=== PATIENT | female | born 1935 | race Two or more races ===

== ENCOUNTER 2017-04-09 19:43 | Emergency (ER) | payer MEDICARE, OTHER ==
[~2017-04-09] VITALS: Ht 160 cm; Wt 81.6 kg
[~2017-04-09 19:43] MED LIST: AMLO5TAB4 PO; ASPI81TA2 PO; CLON0.2T PO; CLON1TAB4 PO; ERGO50003 PO; HYDR-4077 PO; METO50TA3 PO; NAPR375T3 PO; OLME1TAB3 PO; TRAM50TA2 PO; [UNRECOGNIZED DRUG - CODE] IJ
[2017-04-09 20:47] VITALS: BP 155/70
== END 2017-04-09 20:50 | disposition home or self-care (01) ==
LOC: ER 19:53
DX: S80.12XA Contusion of left lower leg, initial encounter (principal); I10 Essential (primary) hypertension; Z79.82 Long term (current) use of aspirin; W20.8XXA Other cause of strike by thrown, projected or falling object, initial encounter; Y93.89 Activity, other specified; Y92.89 Other specified places as the place of occurrence of the external cause; Y99.9 Unspecified external cause status
CPT/HCPCS: 99281; A4606; Z7502; Z7610

== ENCOUNTER 2017-05-23 18:36 | Inpatient (IN) | payer MEDICARE, OTHER ==
[~2017-05-23] VITALS: Ht 154.9 cm; Wt 67.1 kg
--- NOTE | 2017-05-23 18:45 | NUR ---
BIB FAMILY LEFT LOWER EXTREMITY OPEN WOUND S/P INJURY ~ 2-3 WEEKS AGO, NAD NOTED, VSS NOTED, WAITING FOR MD YANG.
--- NOTE | 2017-05-23 19:36 | NUR ---
RECEIVED REPORT, PATIENT STABLE, TRACTOR DISTRIBUTOR AT BEDSIDE. WILL PROVIDE EDWARD.
--- NOTE | 2017-05-23 19:49 | NUR ---
us tech at bedside.
--- NOTE | 2017-05-23 19:57 | NUR ---
REPORT GIVEN TO RICARDA FANG FOR EDWARD.
[2017-05-23 20:32] LABS: BASOPHILS % (AUTO) 0.5 % (0.0-2.0); EOSINOPHILS # (AUTO) 0.1 /CMM (0.0-0.7); EOSINOPHILS % (AUTO) 1.5 % (0.0-6.0); HEMATOCRIT 33 % (33-45); HEMOGLOBIN 10.7 g/dL (11.5-14.8); LYMPHOCYTES # (AUTO) 2.2 /CMM (0.8-4.8); LYMPHOCYTES % (AUTO) 26.4 % (20.0-44.0); MEAN CORPUSCULAR HEMOGLOBIN 28 PG (26.0-33.0); MEAN CORPUSCULAR HGB CONC 33 g/dl (31.0-36.0); MEAN CORPUSCULAR VOLUME 84 fL (82-100); MONOCYTES # (AUTO) 0.6 /CMM (0.1-1.30); NEUTROPHILS # (AUTO) 5.3 /CMM (1.8-8.9); NEUTROPHILS % (AUTO) 64.6 % (43.0-81.0); PLATELET COUNT (AUTO) 198 /CMM (150-450); RED BLOOD CELL COUNT(AUTO) 3.89 MIL/uL (4.0-5.2); WHITE BLOOD COUNT (AUTO) 8.3 K/uL (4.3-11.0)
[2017-05-23 20:50] LABS: CARBON DIOXIDE 29 mmol/L (21-32); CHLORIDE 105 mmol/L (98-107); CREATININE 1.1 mg/dL (0.6-1.3); GLUCOSE 102 mg/dL (74-106); POTASSIUM 3.4 mmol/L (3.5-5.1); SODIUM SERUM 141 mmol/L (136-145); UREA NITROGEN, BLOOD 19 mg/dL (7-18)
[2017-05-23 20:56] LABS: CALCIUM, SERUM 8.8 mg/dL (8.5-10.1)
[2017-05-23 20:58] LABS: TROPONIN I < 0.017 ng/mL (0.00-0.056)
[2017-05-23] MEDS ORDERED: ALPR2TAB2 PO (21:07)
[2017-05-23] MEDS ORDERED: VALS320T2 PO (21:07)
[2017-05-23] MEDS ORDERED: HYDR-4077 PO (21:07)
[2017-05-23] MEDS ORDERED: METO50TA3 PO (21:07)
[2017-05-23] MEDS ORDERED: CLON0.2T PO (21:07)
--- NOTE | 2017-05-23 21:14 | NUR ---
DR AGARWAL ON THE PHONE WITH HILARY MANCINI NP REGARDING PATIENT ADMISSION.
[2017-05-23 21:54] VITALS: BP 156/75
--- NOTE | 2017-05-23 22:00 | NUR ---
MS RN OPENING NOTES RECEIVE PT FROM [facility], ADMIT MS, HEAD TO TOE ASSESSMENT IS DONE, OFFLOADED LEGS, ON ATB WITH NO A/R NOTED. NO S/S OF RESPIRATORY DISTRESS OR SOB. SAFETY MEASURES IN PLACE, ON LOW BED TO ENSURE SAFETY. CALL LIGHT WITHIN REACH. WILL CONTINUE TO MONITOR
--- NOTE | 2017-05-23 22:05 | NUR ---
PATIENT TRANSPORTED TO [facility] VIA [facility]. RNRICARDA TO PROVIDE EDWARD.
[2017-05-24] VITALS: BP 149/74
[2017-05-24 06:17] VITALS: BP 155/65
--- NOTE | 2017-05-24 06:27 | NUR ---
MS RN CLOSING NOTES PATIENT COMFORTABLY ASLEEP AND EASILY AWAKEN, HEAD OF BED ELEVATED FOR BETTER LUNG EXPANSION. RESPIRATIONS EVEN AND UNLABORED. NO S/S OF ACUTE DISTRESS, NO SOB, AFEBRILE, ALL NURSING CARE RENDERED, NEEDS ATTENDED AND ANTICIPATED, KEPT CLEAN AND DRY AND COMFORTABLE, VSS. GOOD SKIN CARE PROVIDED. FREQUENT VISUAL CHECK DONE FOR SAFETY EVERY 2 HOURS SAFE HAZARD FREE ENVIRONMENT PROVIDED. CALL LIGHT WITHIN EASY TO REACH, ON LOW BED AT ALL TIMES TO ENSURE SAFETY, WILL ENDORSE TO THE NEXT SHIFT CONTINUE PLAN OF CARE.
[2017-05-24 06:51] LABS: BASOPHILS % (AUTO) 0.3 % (0.0-2.0); EOSINOPHILS # (AUTO) 0.1 /CMM (0.0-0.7); HEMATOCRIT 30 % (33-45); HEMOGLOBIN 9.6 g/dL (11.5-14.8); LYMPHOCYTES # (AUTO) 2.2 /CMM (0.8-4.8); LYMPHOCYTES % (AUTO) 28.7 % (20.0-44.0); MEAN CORPUSCULAR HEMOGLOBIN 27 PG (26.0-33.0); MEAN CORPUSCULAR HGB CONC 33 g/dl (31.0-36.0); MEAN CORPUSCULAR VOLUME 84 fL (82-100); MONOCYTES # (AUTO) 0.5 /CMM (0.1-1.30); MONOCYTES % (AUTO) 6.1 % (2.0-12.0); NEUTROPHILS % (AUTO) 63.9 % (43.0-81.0); PLATELET COUNT (AUTO) 175 /CMM (150-450); RDW COEFFICIENT OF VARIATION 15.4 (11.5-15.0); RED BLOOD CELL COUNT(AUTO) 3.53 MIL/uL (4.0-5.2); WHITE BLOOD COUNT (AUTO) 7.8 K/uL (4.3-11.0)
[2017-05-24 07:12] LABS: ALANINE AMINOTRANSFERASE 21 U/L (12-78); ALBUMIN 2.9 g/dL (3.4-5.0); ALKALINE PHOSPHATASE 48 U/L (46-116); ASPARTATE AMINOTRANSFERASE 17 U/L (15-37); BILIRUBIN,TOTAL 0.4 mg/dL (0.2-1.0); CALCIUM, SERUM 8.8 mg/dL (8.5-10.1); CARBON DIOXIDE 30 mmol/L (21-32); CHLORIDE 108 mmol/L (98-107); GLUCOSE 97 mg/dL (74-106); MAGNESIUM 1.6 mg/dL (1.8-2.4); PHOSPHORUS 3.4 mg/dL (2.5-4.9); POTASSIUM 3.5 mmol/L (3.5-5.1); SODIUM SERUM 145 mmol/L (136-145); UREA NITROGEN, BLOOD 18 mg/dL (7-18)
[2017-05-24 07:16] LABS: CHOLESTEROL 144 mg/dL (<200); HDL CHOLESTEROL 52 mg/dL (40-60); LDL 80 mg/dL (0-99); THYROID STIMULATING HORMONE 0.334 uIU/mL (0.358-3.74); TRIGLYCERIDES 62 mg/dL (30-150)
--- NOTE | 2017-05-24 07:43 | NUR ---
RN OPENING NOTES RECEIVED PATIENT RESTING IN BED QUIETLY WITH EYES CLOSED. EASILY AROUSABLE. AOX4. DENIES PAIN AT THIS TIME. WILL REASSESS. DENIES SOB AND CP. RESPIRATIONS EVEN AND UNLABORED. NO ACUTE DISTRESS NOTED. IV ACCESS LAC 20G PATENT AND INTACT. WOUND TO LLE DRESSED. WILL CONTINUE TO MONITOR. BED LOCKED IN THE LOWEST POSITION WITH SIDE RAILS UP X2. CALL LIGHT WITHIN REACH. WILL CONTINUE TO MONITOR, ASSESS AND EDUCATE PATIENT THROUGHOUT SHIFT.
[2017-05-24 08:00] VITALS: BP 174/74
--- NOTE | 2017-05-24 14:00 | NUR ---
RN NOTES PATIENT RESTING COMFORTABLY. NO COMPLAINTS OF PAIN. WOUND OPEN TO AIR PER FILLING [employer] [place]. WILL COVER WITH MEPILEX AND KERLEX. WOUND CONSULT TOMORROW. CONDITION REMAINS UNCHANGED. BP IMPROVING. WILL CONTINUE TO MONITOR.
[2017-05-24 16:00] VITALS: BP 131/50
--- NOTE | 2017-05-24 19:08 | NUR ---
RN CLOSING NOTES PATIENT RESTING COMFORTABLY IN BED. AOX4. DENIES PAIN. DENIES SOB AND CP. RESPIRATIONS EVEN AND UNLABORED. NO ACUTE DISTRESS NOTED. LLE WOUND DRESSED WITH MEPILEX AND KERLEX. ALL NEEDS MET ALL MEDS GIVEN APPROPRIATE. REQUESTED FOR FAMILY TO BRING IN MEDICATION BENICAR HCL FROM HOME. NOTIFIED PHARMACY. BED LOCKED IN THE LOWEST POSITION WITH SIDE RAILS UP X2. CALL LIGHT WITHIN REACH. WILL ENDORSE TO NIGHT RN FOR EDWARD
[2017-05-24 20:00] VITALS: BP 125/48
[2017-05-25 06:40] LABS: BASOPHILS % (AUTO) 0.4 % (0.0-2.0); EOSINOPHILS # (AUTO) 0.1 /CMM (0.0-0.7); EOSINOPHILS % (AUTO) 1.9 % (0.0-6.0); HEMATOCRIT 29 % (33-45); HEMOGLOBIN 9.7 g/dL (11.5-14.8); LYMPHOCYTES % (AUTO) 32.6 % (20.0-44.0); MEAN CORPUSCULAR HEMOGLOBIN 28 PG (26.0-33.0); MEAN CORPUSCULAR HGB CONC 33 g/dl (31.0-36.0); MEAN CORPUSCULAR VOLUME 84 fL (82-100); MONOCYTES # (AUTO) 0.5 /CMM (0.1-1.30); NEUTROPHILS # (AUTO) 3.5 /CMM (1.8-8.9); NEUTROPHILS % (AUTO) 57.1 % (43.0-81.0); PLATELET COUNT (AUTO) 168 /CMM (150-450); RDW COEFFICIENT OF VARIATION 15.8 (11.5-15.0); RED BLOOD CELL COUNT(AUTO) 3.49 MIL/uL (4.0-5.2); WHITE BLOOD COUNT (AUTO) 6.2 K/uL (4.3-11.0)
[2017-05-25 06:57] LABS: CALCIUM, SERUM 8.7 mg/dL (8.5-10.1); CARBON DIOXIDE 27 mmol/L (21-32); CHLORIDE 110 mmol/L (98-107); CREATININE 0.9 mg/dL (0.6-1.3); GLUCOSE 101 mg/dL (74-106); MAGNESIUM 2.1 mg/dL (1.8-2.4); PHOSPHORUS 4.1 mg/dL (2.5-4.9); POTASSIUM 3.5 mmol/L (3.5-5.1); SODIUM SERUM 146 mmol/L (136-145); UREA NITROGEN, BLOOD 15 mg/dL (7-18)
[2017-05-25 08:00] VITALS: BP 167/77
--- NOTE | 2017-05-25 08:25 | NUR ---
MS RN RECEIVED ON BED, AWAKE,ALERT,ORIENTED X4,NOT IN ANY FORM OF DISTRESS, RESPIRATIONS EVEN AND UNLABORED,NO SOB NOTED. LUNGS ARE CLEAR, ABDOMEN SOFT,POSITIVE BOWEL SOUNDS, WILL MONITOR PATIENT.
--- NOTE | 2017-05-25 11:34 | NUR ---
WOUND CARE CONSULT: PT PRESENTS WITH LEFT LOWER LEG WOUND, PRESENT ON ADMISSION. PT TO BE FOLLOWED BY FRANCHISE DEVELOPMENT MANAGER. RECOMMENDATIONS MADE FOR SKIN PROTECTION AND WOUND CARE. DISCUSSED WITH NURSING STAFF. WILL SEE PRN. BOURGEOIS IN AGREEMENT WITH PLAN OF CARE. Addendum: 05/25/17 at 1136 by ALBERTO BARRAGAN WNDNU Amended: Links added.
[2017-05-25 16:00] VITALS: BP 164/78
--- NOTE | 2017-05-25 16:00 | NUR ---
MS RN WAS SEEN BY WOUND DOCTOR AND DID THE DEBRIDEMENT OF LEFT LEG.
--- NOTE | 2017-05-25 17:14 | NUR ---
MS RN ON BED, DAUGHTER AT BEDSIDE,ALL NEEDS ATTENDED.
--- NOTE | 2017-05-25 19:30 | NUR ---
MS RN OPENING NOTES: PATIENT IN BED, AOX4, MARSHALLESE SPEAKING, ON ROOM AIR, BREATHING EVEN AND UNLABORED. BREATH SOUNDS CLEAR TO AUSCULTATION. PIV OVER LAC G 20 INTACT AND PATENT TO FLUSH. LLE WITH CLEAN AND INTACT DRESSING, STATES THAT SHE HAS A LITTLE PAIN (UNABLE TO SCALE, NEIGHBOR'S DTR HELPED TRANSLATE). PROVIDED FOR COMFORT AND SAFETY. BED IN LOWEST AND LOCKED POSITION, SIDERAILS UPX3. WILL CONT TO MONITOR.
[2017-05-25 20:00] VITALS: BP 156/61
[2017-05-25 20:43] VITALS: BP 156/61
--- NOTE | 2017-05-25 21:44 | NUR ---
RN NOTES: PATIENT REFUSED WOUND CARE TO BE DONE NOW, SAYING SHE WANTS IT DONE IN THE MORNING.
--- NOTE | 2017-05-26 05:00 | NUR ---
RN NOTES: OFFERED TO DO WOUND DRESSING CHANGE FOR PATIENT, HOWEVER, SHE REFUSED AT THIS TIME.
[2017-05-26 06:33] LABS: BASOPHILS % (AUTO) 0.3 % (0.0-2.0); EOSINOPHILS # (AUTO) 0.1 /CMM (0.0-0.7); EOSINOPHILS % (AUTO) 1.8 % (0.0-6.0); HEMATOCRIT 28 % (33-45); HEMOGLOBIN 9.2 g/dL (11.5-14.8); LYMPHOCYTES # (AUTO) 2.1 /CMM (0.8-4.8); LYMPHOCYTES % (AUTO) 33.6 % (20.0-44.0); MEAN CORPUSCULAR HEMOGLOBIN 27 PG (26.0-33.0); MEAN CORPUSCULAR HGB CONC 33 g/dl (31.0-36.0); MEAN CORPUSCULAR VOLUME 84 fL (82-100); MONOCYTES # (AUTO) 0.5 /CMM (0.1-1.30); MONOCYTES % (AUTO) 8.1 % (2.0-12.0); NEUTROPHILS # (AUTO) 3.5 /CMM (1.8-8.9); NEUTROPHILS % (AUTO) 56.2 % (43.0-81.0); PLATELET COUNT (AUTO) 166 /CMM (150-450); RDW COEFFICIENT OF VARIATION 15.4 (11.5-15.0); RED BLOOD CELL COUNT(AUTO) 3.38 MIL/uL (4.0-5.2); WHITE BLOOD COUNT (AUTO) 6.2 K/uL (4.3-11.0)
[2017-05-26 06:53] LABS: CALCIUM, SERUM 8.8 mg/dL (8.5-10.1); CREATININE 0.8 mg/dL (0.6-1.3); GLUCOSE 94 mg/dL (74-106); PHOSPHORUS 4.7 mg/dL (2.5-4.9); UREA NITROGEN, BLOOD 12 mg/dL (7-18)
--- NOTE | 2017-05-26 06:55 | NUR ---
MS RN CLOSING NOTES: PATIENT IN BED, AOX4, ON O2 AT 2 LPM VIA NC, BREAHTING EVEN AND UNLABORED. APPEARS CALM AND IN NO DISTRESS. NO ACUTE CHANGE IN CONDITION NOTED THROUGH SHIFT. DUE MEDS GIVEN. PROVIDED FOR COMFORT AND SAFETY. BED IN LOWEST AND LOCKED POSITION. SIDERAILS UPX3. WILL ENDORSE TO AM RN FOR EDWARD.
[2017-05-26 07:35] LABS: CARBON DIOXIDE 27 mmol/L (21-32); CHLORIDE 108 mmol/L (98-107); POTASSIUM 3.3 mmol/L (3.5-5.1); SODIUM SERUM 145 mmol/L (136-145)
[2017-05-26 08:00] VITALS: BP 156/65
--- NOTE | 2017-05-26 08:00 | NUR ---
m/s hand launderer: initial assessment received pt in bed awake, a/ox4; nepalese speaking with little turkmen. no c/o pain or any discomfort. lle dressing intact, clean, and dry. lle elevated with pillow. instructed to call for assistance. will continue to monitor.
--- NOTE | 2017-05-26 10:00 | NUR ---
m/s paper handler: notes resting comfortable in bed with no distress noted. will monitor.
--- NOTE | 2017-05-26 11:15 | NUR ---
m/s hoisting engine operator: tool procurement coordinator f/u dr. wolfe at bedside and tx done as ordered. elevated left leg as ordered. instructed to call for assistance. will continue to monitor.
[2017-05-26] MEDS ORDERED: CEPH-570 PO (13:24)
--- NOTE | 2017-05-26 13:25 | NUR ---
m/s jordan worker: md visit seen and examined by dr. bowens with order to d'c home with home health. sebastian (case management) will make arrangement. pt has her home health and sebastian will call them as stated.
--- NOTE | 2017-05-26 14:10 | NUR ---
m/s engineering specialist technician: d'c instruction discharged instructions with prescription given to pt with hanna staff translating, pt verbalized understanding. pt aware she needs outpatient wound debridement with dr. wolfe and vascular surgeon consult as outpatient follow up, pt verbalized understanding per staff (student success advisor). daughter aware and will be here in an hour.
--- NOTE | 2017-05-26 15:45 | NUR ---
m/s lock installer: notes resting comfortable in bed with no distress noted. pt is dressed and ready to go home, but awaiting for daughter to pick him up.
[2017-05-26 16:00] VITALS: BP 126/57
--- NOTE | 2017-05-26 17:10 | NUR ---
m/s analyst programmer: notes daughter here and discharge instructions with prescription given and verbalized understanding. daughter is concern about debridement and wants to talk to dr. wolfe. dr. wolfe notified and able to speak to daughter and will schedule pt next week as outpatient as stated. daughter verbalized understanding and will f/u with dr. wolfe next week. h/l removed with tip intact with no bleeding, no redness, and no swelling noted.
--- NOTE | 2017-05-26 17:45 | NUR ---
m/s file drawer finisher: discharged discharged home in stable condition with all d'c papers and belongings. daughter provided home health name and number and given to indira (case management) to f/u.
== END 2017-05-26 17:40 | disposition home health service (06) | DRG 580 ==
LOC: ER 18:37 → MED 20:05
PROVIDERS: ADMIT Nurse Practitioner Acute Care; ATTEND Nurse Practitioner Acute Care
PROC: 0KBT0ZZ Excision of Left Lower Leg Muscle, Open Approach (ICD-10-PCS; principal; 2017-05-25)
DX: L03.116 Cellulitis of left lower limb (principal); E44.0 Moderate protein-calorie malnutrition; I11.0 Hypertensive heart disease with heart failure; I50.30 Unspecified diastolic (congestive) heart failure; F13.20 Sedative, hypnotic or anxiolytic dependence, uncomplicated; L97.929 Non-pressure chronic ulcer of unspecified part of left lower leg with unspecified severity; E87.6 Hypokalemia; D63.8 Anemia in other chronic diseases classified elsewhere; M19.90 Unspecified osteoarthritis, unspecified site; Z90.49 Acquired absence of other specified parts of digestive tract; Z79.899 Other long term (current) drug therapy; Z79.82 Long term (current) use of aspirin; F41.9 Anxiety disorder, unspecified; E66.9 Obesity, unspecified; Z68.28 Body mass index [BMI] 28.0-28.9, adult; I87.2 Venous insufficiency (chronic) (peripheral)
CPT/HCPCS: 36415; 71010-TC; 80048-TC; 80053-TC; 80061-TC; 83605-TC; 83735-TC; 83880; 84100-TC; 84443-TC; 84484-TC; 85025-TC; 87040-TC; 87070-TC; 87081-TC; 87186-TC; 93307-TC; 93971-TC; 97116-TC; 97530-TC; A6402; A6403; J0696; J1650; J3370; J3475; J3490; J7050; J7060; Z7610

== ENCOUNTER 2017-06-04 09:58 | Outpatient (CLI) | payer MEDICARE, OTHER ==
[~2017-06-04 09:58] MED LIST changes: +ALPR2TAB2 PO; +CEPH-570 PO; -CLON1TAB4 PO; +VALS320T2 PO
== END 2017-06-04 23:59 | disposition home health service (06) ==
LOC: EDBD → WOU 09:58
PROVIDERS: ATTEND Podiatrist Foot & Ankle Surgery
DX: L97.223 Non-pressure chronic ulcer of left calf with necrosis of muscle (principal); M79.605 Pain in left leg; R60.0 Localized edema; S81.811S Laceration without foreign body, right lower leg, sequela; X58.XXXS Exposure to other specified factors, sequela; S51.811D Laceration without foreign body of right forearm, subsequent encounter; W19.XXXD Unspecified fall, subsequent encounter
CPT/HCPCS: 11043; A6209; A6402

== ENCOUNTER 2017-06-18 05:07 | Day surgery (SDC) | payer MEDICARE, OTHER ==
[2017-06-18] MEDS ORDERED: ANESTHESIA TRAY IN PYXIS 1 EA TRAY MC ONE (06:20)
[2017-06-18 06:25] LABS: BASOPHILS % (AUTO) 0.5 % (0.0-2.0); EOSINOPHILS # (AUTO) 0.2 /CMM (0.0-0.7); EOSINOPHILS % (AUTO) 2.7 % (0.0-6.0); HEMATOCRIT 29 % (33-45); HEMOGLOBIN 9.4 g/dL (11.5-14.8); LYMPHOCYTES % (AUTO) 29.7 % (20.0-44.0); MEAN CORPUSCULAR HEMOGLOBIN 27 PG (26.0-33.0); MEAN CORPUSCULAR HGB CONC 33 g/dl (31.0-36.0); MEAN CORPUSCULAR VOLUME 82 fL (82-100); MONOCYTES # (AUTO) 0.6 /CMM (0.1-1.30); MONOCYTES % (AUTO) 9.7 % (2.0-12.0); NEUTROPHILS # (AUTO) 3.8 /CMM (1.8-8.9); NEUTROPHILS % (AUTO) 57.4 % (43.0-81.0); PLATELET COUNT (AUTO) 223 /CMM (150-450); RDW COEFFICIENT OF VARIATION 14.9 (11.5-15.0); RED BLOOD CELL COUNT(AUTO) 3.46 MIL/uL (4.0-5.2); WHITE BLOOD COUNT (AUTO) 6.6 K/uL (4.3-11.0)
[2017-06-18 06:36] LABS: CARBON DIOXIDE 31 mmol/L (21-32); CHLORIDE 100 mmol/L (98-107); CREATININE 1.1 mg/dL (0.6-1.3); GLUCOSE 96 mg/dL (74-106); POTASSIUM 3.8 mmol/L (3.5-5.1); SODIUM SERUM 139 mmol/L (136-145); UREA NITROGEN, BLOOD 16 mg/dL (7-18)
[2017-06-18 06:43] LABS: INR 1.06 (0.87-1.13)
[2017-06-18] MEDS ORDERED: FENTANYL PF 100MCG/2ML AMPUL ONE (06:51)
[2017-06-18] MEDS ORDERED: MIDAZOLAM HCL 2 MG/2ML VIAL ONE (06:52)
[2017-06-18] MEDS ORDERED: LIDOCAINE 0.5%-EPI 1:200,000 50 ML VIAL ONE (06:54)
[2017-06-18] MEDS ORDERED: BUPIVACAINE 0.5 % PF 150 MG/30 ML VIAL ONE (06:55)
[2017-06-18] MEDS ORDERED: hydrALAZINE HCL IV 20 MG VIAL ONE (08:02)
== END 2017-06-18 09:30 | disposition home or self-care (01) ==
LOC: DS 05:07
PROVIDERS: ATTEND Podiatrist Foot & Ankle Surgery
DX: L97.823 Non-pressure chronic ulcer of other part of left lower leg with necrosis of muscle (principal); I10 Essential (primary) hypertension; M19.90 Unspecified osteoarthritis, unspecified site; Z90.710 Acquired absence of both cervix and uterus; Z98.49 Cataract extraction status, unspecified eye
CPT/HCPCS: 11043; 36415; 71010; 80048; 85025; 85610; 85730; 93005; 97605; J0360; J2250; J3010; J3490 ×2; J7120; Z7610; 87070-TC; A6209; A6402; J0690; J2704

== ENCOUNTER 2017-06-22 09:00 | Outpatient (CLI) | payer MEDICARE, OTHER | END 2017-06-22 23:59 | disposition home health service (06) | LOC: WOU 09:00 | PROVIDERS: ATTEND Podiatrist Foot & Ankle Surgery | DX: S81.812A Laceration without foreign body, left lower leg, initial encounter (principal); X58.XXXA Exposure to other specified factors, initial encounter; I87.2 Venous insufficiency (chronic) (peripheral); I10 Essential (primary) hypertension; R60.0 Localized edema; M79.605 Pain in left leg; L97.223 Non-pressure chronic ulcer of left calf with necrosis of muscle | CPT/HCPCS: 11043; 97605; A6402; 87070-TC; 87186-TC ==

== ENCOUNTER 2017-06-29 09:30 | Outpatient (CLI) | payer MEDICARE, OTHER | END 2017-06-29 23:59 | disposition home health service (06) | LOC: WOU 09:30 | PROVIDERS: ATTEND Podiatrist Foot & Ankle Surgery | DX: S81.812A Laceration without foreign body, left lower leg, initial encounter (principal); I87.2 Venous insufficiency (chronic) (peripheral); M79.605 Pain in left leg; R60.0 Localized edema; I10 Essential (primary) hypertension; L97.223 Non-pressure chronic ulcer of left calf with necrosis of muscle; Z98.49 Cataract extraction status, unspecified eye | CPT/HCPCS: 11043; 97605-TC; A6402 ==

== ENCOUNTER 2017-07-06 09:06 | Outpatient (CLI) | payer MEDICARE, OTHER | END 2017-07-06 23:59 | disposition home health service (06) | LOC: WOU 09:06 | PROVIDERS: ATTEND Podiatrist Foot & Ankle Surgery | DX: S81.812A Laceration without foreign body, left lower leg, initial encounter (principal); X58.XXXA Exposure to other specified factors, initial encounter; I87.2 Venous insufficiency (chronic) (peripheral); L97.223 Non-pressure chronic ulcer of left calf with necrosis of muscle; R60.0 Localized edema | CPT/HCPCS: 11043; 97605; A6402; 11042 ==

== ENCOUNTER 2017-07-16 09:00 | Outpatient (CLI) | payer MEDICARE, OTHER | END 2017-07-16 23:59 | disposition home health service (06) | LOC: WOU 09:00 | PROVIDERS: ATTEND Podiatrist Foot & Ankle Surgery | DX: L97.223 Non-pressure chronic ulcer of left calf with necrosis of muscle (principal); R60.0 Localized edema; M79.605 Pain in left leg; S81.812S Laceration without foreign body, left lower leg, sequela; X58.XXXS Exposure to other specified factors, sequela; I10 Essential (primary) hypertension | CPT/HCPCS: 11043; 97605-TC; A6402 ==

== ENCOUNTER 2017-07-20 08:15 | Outpatient (CLI) | payer MEDICARE, OTHER | END 2017-07-20 23:59 | disposition home health service (06) | LOC: WOU 08:15 | PROVIDERS: ATTEND Podiatrist Foot & Ankle Surgery | DX: S81.812A Laceration without foreign body, left lower leg, initial encounter (principal); X58.XXXA Exposure to other specified factors, initial encounter; L97.223 Non-pressure chronic ulcer of left calf with necrosis of muscle; M79.604 Pain in right leg; R60.0 Localized edema; I10 Essential (primary) hypertension | CPT/HCPCS: 11042; A6402 ==

== ENCOUNTER 2017-08-03 13:00 | Outpatient (CLI) | payer MEDICARE, OTHER ==
[~2017-08-03 13:00] MED LIST changes: +ASPI-1169 PO; -ASPI81TA2 PO; +CYAN-6 IJ; +ERGO500014 PO; -ERGO50003 PO; +METO50TA16 PO; -METO50TA3 PO; +NAPR-1192 PO; -NAPR375T3 PO; +OLME1TAB22 PO; -OLME1TAB3 PO; -[UNRECOGNIZED DRUG - CODE] IJ
== END 2017-08-03 23:59 | disposition home health service (06) ==
LOC: WOU 13:00
PROVIDERS: ATTEND Podiatrist Foot & Ankle Surgery
DX: S81.812A Laceration without foreign body, left lower leg, initial encounter (principal); X58.XXXA Exposure to other specified factors, initial encounter; R60.0 Localized edema; M79.605 Pain in left leg
CPT/HCPCS: 11042; A6402 ×2

== ENCOUNTER 2017-08-13 10:55 | Outpatient (CLI) | payer MEDICARE, OTHER | END 2017-08-13 23:59 | disposition home health service (06) | LOC: WOU 10:55 | PROVIDERS: ATTEND Podiatrist Foot & Ankle Surgery | DX: L97.222 Non-pressure chronic ulcer of left calf with fat layer exposed (principal); R60.0 Localized edema; S81.812D Laceration without foreign body, left lower leg, subsequent encounter; X58.XXXD Exposure to other specified factors, subsequent encounter | CPT/HCPCS: 11042; A6402 ==

== ENCOUNTER 2017-08-20 10:15 | Outpatient (CLI) | payer MEDICARE, OTHER | END 2017-08-20 23:59 | disposition home health service (06) | LOC: WOU 10:15 | PROVIDERS: ATTEND Podiatrist Foot & Ankle Surgery | DX: L97.222 Non-pressure chronic ulcer of left calf with fat layer exposed (principal); S81.812D Laceration without foreign body, left lower leg, subsequent encounter; X58.XXXD Exposure to other specified factors, subsequent encounter; R60.0 Localized edema | CPT/HCPCS: 11042; A6402 ==

== ENCOUNTER 2017-09-03 12:26 | Outpatient (CLI) | payer MEDICARE, OTHER | END 2017-09-03 23:59 | disposition home health service (06) | LOC: WOU 12:26 | PROVIDERS: ATTEND Podiatrist Foot & Ankle Surgery | DX: S81.812A Laceration without foreign body, left lower leg, initial encounter (principal); S81.811A Laceration without foreign body, right lower leg, initial encounter; X58.XXXA Exposure to other specified factors, initial encounter; M79.605 Pain in left leg; R60.0 Localized edema; I10 Essential (primary) hypertension; Z79.899 Other long term (current) drug therapy | CPT/HCPCS: 11042; A6402 ==

== ENCOUNTER 2017-09-17 11:03 | Outpatient (CLI) | payer MEDICARE, OTHER | END 2017-09-17 23:59 | disposition home health service (06) | LOC: WOU 11:03 | PROVIDERS: ATTEND Podiatrist Foot & Ankle Surgery | DX: S81.812D Laceration without foreign body, left lower leg, subsequent encounter (principal); X58.XXXD Exposure to other specified factors, subsequent encounter; R60.0 Localized edema | CPT/HCPCS: G0463 ==